=== PATIENT | female | born 1985 | race Caucasian/White ===

== ENCOUNTER → 2016-10-30 | Outpatient (CLI) | payer OTHER ==
--- NOTE | 2016-10-30 16:24 | US ---
Dear Dr. Del Cid, Thank you for sending your patient, Maria Del Carmen West, to us for an US and consultation to assess fet al anatomy. As you know, the patient is a 31 y.o. G3, P0020 at 19 weeks and 3 days with an EDC of 03/07 04/22 based on LMP and 8 week US. Her has been uncomplicated to date. Genetic Screening: Sequential Screen negative The patient denies any uterine contractions, vaginal bleeding, or loss of fluid. Today, she is withou t complaints. US FINDINGS: Number of fetuses: 1 Placental location: Posterior, No previa Placental Cord Insertion: Central presentation: Cephalic Cervix: 3.6 cm, transabdominally MVP: 4.2 cm The adnexa were evaluated. No pathology was seen. Right ovary: Suboptimal Left ovary: Suboptimal heart rate: 134 bpm Measurements: Biparietal diameter: 45 mm, 19 weeks 5 days Head circumference: 170 mm, 19 weeks 5 days Abdominal circumference: 145 mm, 19 weeks 6 days Femur length: 30 mm, 19 weeks 2 days Humerus length: 29 mm, 19 weeks 4 days Transcerebellar diameter: 21 mm, 19 weeks 6 days Average ultrasound age: 19 weeks 5 days Estimated weight: 301 g weight percentile: 55% ANATOMY Supratentorial brain: Normal Cerebral lateral ventricle: 5 mm Posterior fossa: Normal Cisterna magna: 4 mm Nuchal fold: 4.3 mm Lip: Normal Profile: Normal Alveolar Ridge: Appears intact Spine: -- Cervical: Normal -- Thoracic: Normal -- Lumbar: Normal -- Sacral: Normal Heart: -- 4 Chamber: Normal -- Intraventricular septum: Appears intact by Color and Spectral US -- Right Outflow Tract: Normal -- Left Outflow Tract: Normal -- 3 Vessel View: Normal Diaphragm: Appears intact Stomach: Normal Abdominal Umbilical Cord Insertion: Normal Right kidney: Normal Left kidney: Normal Bladder: Normal Number of cord vessels: 3 Upper extremities: -- Right Arm: Normal -- Right Hand: Normal -- Left Arm: Normal -- Left Hand: Normal Lower extremities: -- Right Leg: Normal -- Right Foot: Normal, no club foot -- Left Leg: Normal -- Left Foot: Normal, no club foot IMPRESSION: 1. Anatomy: The fetus measures appropriate for gestational age, measuring a normal weight and percen tile. Visualization of the fetus today reveals no overt structural anomalies. There is evidence of no rmal amniotic fluid, and movement was seen during the examination. 2. Genetic Screening: This patient has had reassuring Sequential Screen results this . Today , no markers of aneuploidy were seen. While her screening and US results are reassuring, we rev iewed that aneuploidy can only be definitively excluded with diagnostic testing via amniocentes is. After this discussion, the patient does not wish to proceed with invasive testing at this time. Thank you again for sending this patient to see us today. Please feel free to contact me with any questions at . Maryellen Butler MD Maternal- Medicine
--- NOTE | 2016-10-30 17:12 | US ---
Complete Obstetric Ultrasound History: 31-year-old with estimated gestational age of 19 weeks 3 days with EDC of March 23, 2017. Comparison: OB ultrasound September 13, 2016. Findings: Number: 1 Presentation: Variable Placental location: Posterior. No previa. Cervix: Closed, measuring 3.6 cm transabdominally Maximum vertical pocket: 4.2 cm The ovaries are not visible. Biometry: Biparietal diameter: 45 mm 19 weeks, 5 days Head circumference: 170 mm 19 weeks, 5 days Abdominal circumference: 145 mm 19 weeks, 6 days Femur length: 30 mm 19 weeks, 2 days Humerus length: 29 mm 19 weeks, 4 days Transcerebellar diameter: 21 mm 19 weeks, 6 days Average ultrasound age: 19 weeks, 5 days EDC based on today's average ultrasound age: March 21, 2017 Estimated weight is 301 gms +/- 44 gms. The estimated weight percentile is 55 % based on previous dating. ANATOMY SURVEY: Supratentorial brain: Normal Posterior fossa: Normal Spine: Normal Nose and lips: Normal Heart: Four chamber heart with heart rate of 134. The outflow tracts are normal. Stomach: Normal Umbilical cord insertion: Normal Kidneys: Normal Bladder: Normal Number of cord vessels: Three Upper extremities: Normal Lower extremities: Normal Impression: 1. Living single intrauterine with size concordant with dates. 2. Unremarkable anatomy. Please see separate dictation for consultation performed by Maryellen Butler MD, the [facility].
== END ==
LOC: FIMAGING 14:30
PROVIDERS: ATTEND Obstetrics & Gynecology
DX: Z36 Encounter for antenatal screening of mother (principal); Z3A.19 19 weeks gestation of pregnancy

== ENCOUNTER 2017-01-24 19:50 | Inpatient (IN) | payer OTHER ==
[2017-01-24] MEDS ORDERED: WATER IV ONE (20:48)
[2017-01-24] MEDS ORDERED: AZITHROMYCIN 250 MG TAB PO ONE (20:48)
[2017-01-24] MEDS ORDERED: MAGNESIUM SULF IV ONE (20:48)
[2017-01-24] MEDS ORDERED: CALCIUM GLUC 10% 1 GM/10 ML VIAL IVP PRN (20:48)
[2017-01-24] MEDS ORDERED: BETAMETHASONE IM SYRINGE IM ONE (21:00)
--- NOTE | 2017-01-24 21:33 | GHP ---
[f rep st] HISTORY AND PHYSICAL DATE OF ADMISSION: 01/24/2017 CHIEF COMPLAINT: Leaking fluid. HISTORY OF PRESENT ILLNESS: The patient is a 31-year-old, G3, P0-0-2-0 at 31 weeks 5 days by last menstrual period and first trimester ultrasound who presents to the hospital with a complaint of leaking clear fluid from the vagina. She states that she was out at an event with family and suddenly felt like her underwear was wet. She went to the bathroom and noticed clear fluid trickling down her leg and then she immediately presented to the hospital. She denies vaginal bleeding, contractions, and she feels positive movement. Her is notable for history of 1 induced and 1 missed in the past. OB labs: blood type B positive with antibody negative. Hematocrit 41.2%. Normal Pap smear. She is immune to rubella. Nonreactive to RPR, hepatitis B surface antigen, HIV, and a negative urine culture. She had a negative gonorrhea and chlamydia screen. Her 1-hour Glucola was normal. GBS unknown. PAST MEDICAL HISTORY: Nonsignificant. PAST SURGICAL HISTORY: Notable for a fractured rib in 2006, a wrist fracture in 1999, and another wrist fracture in 1994. SOCIAL HISTORY: [place]. She works for an [employer]. She is not a smoker and she does not use alcohol during or any other drugs. FAMILY HISTORY: Non contributory ALLERGIES: She is allergic to synthetic epinephrine. MEDICATIONS: vitamins and Zofran ODT 4 mg p.r.n. PHYSICAL EXAMINATION: VITAL SIGNS: Blood pressure 117/64 mm/Hg. Temperature 36.9 degree celcius. Respirations 16 per minute. Pulse 78 beats per minute. GENERAL: Awake, alert. No acute distress. RESPIRATORY: Unlabored breathing. CARDIOVASCULAR: Regular rate and rhythm. 2+ pulses. ABDOMEN: Gravid, appropriate with gestational age. Soft. Nontender. No contractions palpated. EXTREMITIES: No edema. PERINEUM: Just prior to planned placement of speculum there were multiple gushes of clear fluid consistent with amniotic fluid and which was Nitrazine positive. DIAGNOSTIC STUDIES: Bedside ultrasound demonstrated a fetus in vertex presentation. Baseline heart rate 130 beats per minute with moderate variability. Positive spontaneous accelerations and no decelerations. Tocometer notable for contractions every 2-3 minutes. Laboratory studies pending include complete blood count and type and screen. ASSESSMENT: The patient is a 31-year-old, G3, P0-0-2-0 at 31 weeks and 5 days who presents premature rupture of membranes. She is not in labor. The current status is reassuring and in vertex presentation. Up until this point, she has had a low-risk . PLAN: Admit to labor and delivery for the duration of the . GBS swab collected. Administer corticosteroids for lung maturity. Administer standard antibiotics for PPROM. As she is less than 32 weeks and is currently esther on the monitor will administer magnesium for neuroprotection which will include a 6 g bolus followed by 2 g/hour for 12 hours. Type and screen, and CBC to be collected. Will obtain formal ultrasound with growth in the morning. Regular diet. Saline lock IV. Modified bed rest. We will plan to induce labor at 34 weeks 0 days. All questions answered in detail with the parents. Of note, while discussing the plan of care, the patient's had a brief syncopal episode while he was sitting in a chair. He immediately awakened with a sternal rub. He states that it is very common for him to have these episodes when he is anxious or nervous. /[id number]/MODL MTDD
[2017-01-24 21:54] LABS: % IMMATURE GRANULYOCYTES 1.7 % (0.0-1.1); ABSOLUTE IMMATURE GRANULOCYTES 0.17 10^3/uL (0.00-0.10); ADD DIFF? NO; ADD MORPH? NO; ADD SCAN? NO; ATYPICAL LYMPHOCYTE FLAG 0 (0-99); FRAGMENT RBC FLAG 0 (0-99); HEMATOCRIT 38.4 % (38.0-47.0); HEMOGLOBIN 12.8 g/dL (12.6-16.3); LEFT SHIFT FLG 10 (0-99); LIPEMIA HEMOLYSIS FLAG 80 (0-99); MEAN CELL HEMOGLOBIN 30.6 pg (27.9-34.1); MEAN CELL HEMOGLOBIN CONCENTR. 33.3 g/dL (32.4-36.7); MEAN CELL VOLUME 91.9 fL (81.5-99.8); MEAN PLATELET VOLUME 11.6 fL (8.7-11.7); PLATELET CLUMPS FLAG 0 (0-99); PLATELET COUNT 236 10^3/uL (150-400); RED BLOOD CELL COUNT 4.18 10^6/uL (4.18-5.33)
[2017-01-24] MEDS: Mag Sulf 500 ML IV SCH (21:57)
[2017-01-24] MEDS: AMPICILLIN SODIUM 2 GM in NS 100 ML IV SCH (22:00)
[2017-01-24] MEDS ORDERED: ONDANSETRON 4 MG/2 ML VIAL IVP PRN (22:17)
[2017-01-24] MEDS ORDERED: CALCIUM CARBONATE 500 MG CHEWABLE TAB PO PRN (22:17)
[2017-01-24] MEDS ORDERED: ACETAMINOPHEN 325 MG TAB PO PRN (22:18)
[2017-01-24] MEDS: DOCUSATE SODIUM 100 MG CAP PO SCH (22:32)
[2017-01-25] MEDS ORDERED: AMPICILLIN SODIUM 2 GM in NS 100 ML IV SCH
[2017-01-25] MEDS: AMPICILLIN SODIUM 2 GM in NS 100 ML IV SCH ×4 (03:32→20:55)
[2017-01-25] MEDS: Mag Sulf 500 ML IV SCH (04:05)
[2017-01-25] MEDS ORDERED: BETAMETHASONE 30 MG/5 ML VIAL IM SCH (09:00)
[2017-01-25] MEDS: DOCUSATE SODIUM 100 MG CAP PO SCH ×2 (09:16→20:56)
[2017-01-25] MEDS: AZITHROMYCIN 250 MG TAB PO SCH (09:16)
[2017-01-25] MEDS: SIMETHICONE 80 MG TAB CHEW PO SCH ×3 (09:19→18:06)
[2017-01-25] MEDS ORDERED: MAGNESIUM SULF 20 GM/500 ML BAG IV ONE (15:23)
--- NOTE | 2017-01-25 18:03 | OBPROG ---
OBG Progress Note Assessment/Plan: Pt seen this AM at 0830 and again now at 1800 (total 30 minutes). Assessment: 31 y/o A2 female at 31+6 weeks EGA w/ PPROM - hemodynamically stable, afebrile Plan: 1) PPROM: Plan for expectant management with plans for delivery if non- reassuring status, signs of chorioamnionitis, or labor. Continue antibiotics w/ ampicillin and azithromycin. 2) status reassuring - continuous monitoring while on magnesium; plan NST TID after Mg completed. BTMZ #1 completed; dose #2 tonight. 3) Tocolysis - continue Mg for neuroprotection and tocolysis until 2nd dose of BTMZ tonight. No signs of labor. 4) GBS pending. 5) Modified bedrest w/ BRP - ambulating well w/ Mg. SCD's bilaterally for DVT prophylaxis. Counseled > 90% of visit, all questions answered. Seen by CHILDCARE DIRECTOR for counseling as well. 01/25/17 17:59 Subjective: Pt has no complaints. Not feeling any contractions or cramping, no bleeding, + continued LOF that appears clear and not foul smelling. No concerns. Pt seen by CHILDCARE DIRECTOR, all questions answered. Objective: 01/24/17 20:50 Patient ABO/Rh B POSITIVE 01/24/17 20:50 Current Contraction Pattern: Irregular FHR (bpm): 120 FHR Pattern Variability: Moderate FHR Category: 1 Membranes: SROM Amniotic Fluid Color: Clear ICD10 Worksheet Patient Problems: Problems Problem Status Onset premature rupture of membranes (PPROM) with unknown onset of labor Acute - ICD10 Problem Qualifiers (1) premature rupture of membranes (PPROM) with unknown onset of labor
[2017-01-25] MEDS ORDERED: BETAMETHASONE IM SYRINGE IM ONE (21:00)
[2017-01-25] MEDS ORDERED: diphenhydrAMINE 25 MG CAP PO ONE (23:00)
[2017-01-26] MEDS: AMPICILLIN SODIUM 2 GM in NS 100 ML IV SCH ×3 (03:03→15:02)
[2017-01-26] MEDS: SIMETHICONE 80 MG TAB CHEW PO SCH ×5 (04:56→23:02)
[2017-01-26] MEDS: AZITHROMYCIN 250 MG TAB PO SCH (09:09)
[2017-01-26] MEDS: DOCUSATE SODIUM 100 MG CAP PO SCH ×2 (09:09→21:03)
--- NOTE | 2017-01-26 10:11 | OBPROG ---
OBG Progress Note Assessment/Plan: Pt seen this AM at 0830 and again now at 1800 (total 30 minutes). Assessment: 31 y/o A2 female at 31+6 weeks EGA w/ PPROM - hemodynamically stable, afebrile Plan: 1) PPROM: Plan for expectant management with plans for delivery if non- reassuring status, signs of chorioamnionitis, or labor. Continue antibiotics w/ ampicillin and azithromycin. 2) status reassuring - NST TID, s/p BTMZ course. Counseled by TEAM AUTOMOBILE ASSEMBLER regarding risks of prematurity. 3) No signs of labor. 4) GBS pending. 5) Modified bedrest w/ BRP 6) SCD's bilaterally for DVT prophylaxis. Counseled > 90% of visit, all questions answered. 01/26/17 10:12 Subjective: Pt feels well. No complaints currently. She did have an episode last night of redness on her upper arms and shoulders that spread to her neck and chest; no itching, no SOB/chest pain. No other symptoms; no new medication exposures. Pt given benadryl, and she slept well, and now the redness is completely gone. No vb/ctx, abdominal pain, +good FM, and continued clear leakage of fluid. No other concerns. Objective: 01/24/17 20:50 Patient ABO/Rh B POSITIVE 01/24/17 20:50 Group B Strep DNA NEGATIVE (NEGATIVE) 01/24/17 20:45 Current Contraction Pattern: Other (Specify) (rare) FHR (bpm): 120 FHR Pattern Variability: Moderate FHR Category: 1 Membranes: SROM Amniotic Fluid Color: Clear - Physical Exam General Appearance: WD/WN, alert, no apparent distress Respiratory: lungs clear Cardiac/Chest: regular rate, rhythm Abdomen: normal bowel sounds, other (fundus nontender) ICD10 Worksheet Patient Problems: Problems Problem Status Onset premature rupture of membranes (PPROM) with unknown onset of labor Acute - ICD10 Problem Qualifiers (1) premature rupture of membranes (PPROM) with unknown onset of labor
[2017-01-27 09:13] LABS: % IMMATURE GRANULYOCYTES 2.5 % (0.0-1.1); ABSOLUTE IMMATURE GRANULOCYTES 0.26 10^3/uL (0.00-0.10); ADD DIFF? NO; ADD MORPH? NO; ADD SCAN? NO; ATYPICAL LYMPHOCYTE FLAG 10 (0-99); FRAGMENT RBC FLAG 0 (0-99); HEMATOCRIT 33.6 % (38.0-47.0); HEMOGLOBIN 11.1 g/dL (12.6-16.3); LEFT SHIFT FLG 20 (0-99); LIPEMIA HEMOLYSIS FLAG 80 (0-99); MEAN CELL HEMOGLOBIN 30.4 pg (27.9-34.1); MEAN CELL VOLUME 92.1 fL (81.5-99.8); MEAN PLATELET VOLUME 10.9 fL (8.7-11.7); PLATELET CLUMPS FLAG 0 (0-99); PLATELET COUNT 212 10^3/uL (150-400); RED BLOOD CELL COUNT 3.65 10^6/uL (4.18-5.33); RED CELL DISTRIBUTION WIDTH 12.1 % (11.5-15.2)
[2017-01-27] MEDS: AZITHROMYCIN 250 MG TAB PO SCH (09:13)
[2017-01-27] MEDS: DOCUSATE SODIUM 100 MG CAP PO SCH ×2 (09:13→20:37)
[2017-01-27] MEDS: SIMETHICONE 80 MG TAB CHEW PO SCH ×4 (09:14→22:59)
--- NOTE | 2017-01-27 13:28 | OBPROG ---
OBG Progress Note Assessment/Plan: Pt seen this AM at 0830 and again now at 1800 (total 30 minutes). Assessment: 31 y/o A2 female at 32+0 weeks EGA w/ PPROM - hemodynamically stable, afebrile Plan: 1) PPROM: Plan for expectant management with plans for delivery if non- reassuring status, signs of chorioamnionitis, or labor. Continue antibiotics w/ ampicillin and azithromycin. 2) status reassuring - NST TID, s/p BTMZ course. Counseled by GOLF COURSE ARCHITECT regarding risks of prematurity. 3) No signs of labor. 4) GBS negative. 5) Activity: Modified bedrest w/ bathroom privileges. Will allow wheel chair privileges to nursery and outside once daily; may shower once daily. 6) SCD's bilaterally for DVT prophylaxis. 01/27/17 13:30 Subjective: Pt has no complaints, feeling well. Continued small amt of LOF that is clear, no ctx or cramping, no bleeding, good FM. No fevers/chills/abd pain. Objective: 01/27/17 09:00 Patient ABO/Rh B POSITIVE 01/24/17 20:50 Group B Strep DNA NEGATIVE (NEGATIVE) 01/24/17 20:45 Membranes: SROM Amniotic Fluid Color: Clear - Physical Exam General Appearance: WD/WN, alert, no apparent distress Respiratory: lungs clear Cardiac/Chest: regular rate, rhythm Abdomen: normal bowel sounds, non-tender, soft ICD10 Worksheet Patient Problems: Problems Problem Status Onset premature rupture of membranes (PPROM) with unknown onset of labor Acute - ICD10 Problem Qualifiers (1) premature rupture of membranes (PPROM) with unknown onset of labor
--- NOTE | 2017-01-28 08:49 | OBPROG ---
OBG Progress Note Assessment/Plan: Assessment: 31 y/o A2 female at 32+1 weeks EGA w/ PPROM - hemodynamically stable, afebrile, status reassuring. Mild cramping this AM, resolved. Plan: 1) PPROM: Plan for expectant management with plans for delivery if non- reassuring status, signs of chorioamnionitis, or labor. Continue antibiotics w/ amoxicillin and azithromycin, Day 01/11 2) status reassuring - NST TID, s/p BTMZ course. Counseled by LEAD DEVELOPER regarding risks of prematurity. EFW 1802 g on 01/26 (31st percentile). Vertex 3) No signs of labor. Pt will let us know if cramping or back pain returns, will monitor with toco in that case and consider SSE 4) GBS negative. 5) Activity: Modified bedrest w/ bathroom privileges. Will allow wheel chair privileges to nursery and outside once daily; may shower once daily. 6) SCD's bilaterally for DVT prophylaxis. 01/28/17 08:52 Subjective: Overall feeling well. Baby is very active. Ongoing leaking of fluid, very slight pink tinge last night x 1, none since. Earlier this AM felt some mild cramping and back discomfort, now completely resolved. No fevers/chills. Objective: 01/27/17 09:00 Patient ABO/Rh B POSITIVE 01/27/17 21:45 Group B Strep DNA NEGATIVE (NEGATIVE) 01/24/17 20:45 109/72 36.6 64 Gen: alert, awake, NAD Resp: unlabored CV: RRR Abd: gravid, soft, nontender Ext: SCDs in place, no edema FHR (bpm): 130 FHR Pattern Variability: Moderate FHR Category: 1 Membranes: SROM Amniotic Fluid Color: Clear ICD10 Worksheet Patient Problems: Problems Problem Status Onset premature rupture of membranes (PPROM) with unknown onset of labor Acute Vaginal discharge during in third trimester Acute
[2017-01-28] MEDS: AZITHROMYCIN 250 MG TAB PO SCH (09:08)
[2017-01-28] MEDS: DOCUSATE SODIUM 100 MG CAP PO SCH ×2 (09:08→21:00)
--- NOTE | 2017-01-29 08:20 | SOAPPROG ---
SOAP Progress Note Assessment/Plan: Assessment: 31 yo @ 32 2/7 with PPROM Plan: 01/29/17 08:16 FWB reassuring by nst tid and growth US. PPROM-on abx oral, s/p bmz, plan on IOL at 34 weeks if the patient does not develop chorio or nonreassuring herat tones GBS neg. Subjective: 31 yo female @ 32 3/7 with PPROM, no complaints today. Objective: Laboratory Results 01/27/17 09:00 104/56 66 16 37.4 Physical Exam - Physical Exam General Appearance: no apparent distress Respiratory: lungs clear Cardiac/Chest: regular rate, rhythm Abdomen: non-tender Skin: warm/dry Extremities: non-tender Neuro/Psych: oriented x 3 ICD10 Worksheet Patient Problems: Problems Problem Status Onset premature rupture of membranes (PPROM) with unknown onset of labor Acute Vaginal discharge during in third trimester Acute
[2017-01-29] MEDS: DOCUSATE SODIUM 100 MG CAP PO SCH ×2 (09:52→21:59)
[2017-01-29] MEDS: AZITHROMYCIN 250 MG TAB PO SCH (09:52)
[2017-01-30] MEDS: DOCUSATE SODIUM 100 MG CAP PO SCH ×2 (09:09→21:04)
--- NOTE | 2017-01-30 11:29 | SOAPPROG ---
SOAP Progress Note Assessment/Plan: Assessment: 31 yo @ 32 4/7 with PPROM Plan: FWB reassuring by nst tid and growth US. PPROM-on abx oral, s/p bmz, plan on IOL at 34 weeks if the patient does not develop chorio or nonreassuring herat tones GBS neg. 01/30/17 11:27 Subjective: 31 yo @ 32 4/7 with PPROM-had some contractions last night which resolved with IV fluids. No vaginal bleeding or unusual discharge, good movement. Objective: Laboratory Results 01/27/17 09:00 110/67 73 36.8 NST 130s, mod variability, +accels, uterine irritability on toco Physical Exam - Physical Exam General Appearance: no apparent distress Respiratory: lungs clear Cardiac/Chest: regular rate, rhythm Abdomen: non-tender Skin: warm/dry Extremities: non-tender Neuro/Psych: oriented x 3 ICD10 Worksheet Patient Problems: Problems Problem Status Onset premature rupture of membranes (PPROM) with unknown onset of labor Acute Vaginal discharge during in third trimester Acute
--- NOTE | 2017-01-30 19:29 | OBPROG ---
OBG Progress Note Assessment/Plan: Called by RN with report that patient's IV infiltrated, and she needed orders to put in a new IV and continue maintenance IVF. Ordered IV access & LR @ 125 cc/hour. I also noted an incidental discharge order that must have been written in error over this last weekend, so I cancelled it. Caleb Prieto MD 01/30/17 19:28 Objective: 01/27/17 09:00 Patient ABO/Rh B POSITIVE 01/27/17 21:45 Group B Strep DNA NEGATIVE (NEGATIVE) 01/24/17 20:45 ICD10 Worksheet Patient Problems: Problems Problem Status Onset premature rupture of membranes (PPROM) with unknown onset of labor Acute Vaginal discharge during in third trimester Acute - ICD10 Problem Qualifiers (1) premature rupture of membranes (PPROM) with unknown onset of labor
[2017-01-30] MEDS: LR 1,000 ML IV SCH (23:41)
--- NOTE | 2017-01-31 07:35 | SOAPPROG ---
SOAP Progress Note Assessment/Plan: Assessment: 31 yo @ 32 5/7 with PPROM, stable Plan: FWB reassuring by nst tid and growth US. PPROM-on abx oral, s/p bmz, plan on IOL at 34 weeks if the patient does not develop chorio or nonreassuring herat tones GBS neg. 01/31/17 07:33 Subjective: 31 yo @ 32 5/7 with PPROM, stable-no worsening contractions, vaginal bleeding. Objective: Laboratory Results 01/27/17 09:00 100/58 74 36.7 NST 130s, mod variability, +accels TOCO-shows uterine irritability Physical Exam - Physical Exam General Appearance: no apparent distress Respiratory: lungs clear Cardiac/Chest: regular rate, rhythm Abdomen: non-tender Skin: warm/dry Extremities: non-tender Neuro/Psych: oriented x 3 ICD10 Worksheet Patient Problems: Problems Problem Status Onset premature rupture of membranes (PPROM) with unknown onset of labor Acute Vaginal discharge during in third trimester Acute
[2017-01-31] MEDS: DOCUSATE SODIUM 100 MG CAP PO SCH (08:38)
[2017-02-01] MEDS: DOCUSATE SODIUM 100 MG CAP PO SCH ×2 (09:16)
--- NOTE | 2017-02-01 12:32 | SOAPPROG ---
SOAP Progress Note Assessment/Plan: Assessment: 31 yo @ 32 6/7 with PPROM, stable Plan: FWB reassuring by nst tid and growth US. PPROM-s/p abx oral, s/p bmz, plan on IOL at 34 weeks if the patient does not develop chorio or nonreassuring herat tones GBS neg. 02/01/17 12:31 Subjective: 31 yo @ 32 6/7 with PPROM, stable Objective: Laboratory Results 01/27/17 09:00 120/62 78 98% 37.1 Physical Exam - Physical Exam General Appearance: no apparent distress Abdomen: non-tender Skin: warm/dry Extremities: non-tender Neuro/Psych: oriented x 3 ICD10 Worksheet Patient Problems: Problems Problem Status Onset premature rupture of membranes (PPROM) with unknown onset of labor Acute Vaginal discharge during in third trimester Acute
[2017-02-01] MEDS: LR 1,000 ML IV SCH (22:49)
[2017-02-02] MEDS: DOCUSATE SODIUM 100 MG CAP PO SCH ×3 (06:36→23:21)
--- NOTE | 2017-02-02 07:43 | SOAPPROG ---
SOAP Progress Note Assessment/Plan: Assessment/Plan: 31 y/o A2 female at 33 weeks EGA w/ PPROM - hemodynamically stable, afebrile , fundus nontender. s/p abx. Not in labor. status overall reassuring, however newly with subtle intermittent late decels today. Will do position changes, O2 prn, and continuously monitor today. Continue IVF. Continue SCDs. GBS neg. Modified bedrest with bathroom privileges. Reviewed plan of care with pt and all questions answered. Subjective: Slept well overnight. On IV fluids since Saturday as she was having contractions and this resolved them. This morning baby wasn't feeling as active , now he is moving better. No VB. Not feeling any contractions. Objective: Laboratory Results 01/27/17 09:00 Gen: NAD, awake, alert Resp: unlabored CV: RRR Abd: gravid, soft, nontender Ext: no edema FHR baseline 130, mod alyse, accels, rare intermittent late decels (1 last night on NST, 2 this AM, very subtle with change from baseline from 130 --> 120). [place]: rare contractions, pt denies feeling - Time Spent With Patient Time Spent With Patient: 15 min - Pending Discharge Pending Discharge Within 24 Hours: No Pending Discharge Within 48 Hours: No ICD10 Worksheet Patient Problems: Problems Problem Status Onset premature rupture of membranes (PPROM) with unknown onset of labor Acute Vaginal discharge during in third trimester Acute
[2017-02-03] MEDS: DOCUSATE SODIUM 100 MG CAP PO SCH ×2 (09:06→21:37)
--- NOTE | 2017-02-03 09:29 | SOAPPROG ---
SOAP Progress Note Assessment/Plan: Assessment/Plan: 31 y/o A2 female at 33 1/7 weeks EGA w/ PPROM - hemodynamically stable, afebrile, fundus nontender. s/p abx, BMTZ, mag. Not in labor. status reassuring, no further decelerations, mod alyse with accels. Rare contractions. Continue IVF. Continue SCDs. GBS neg. Modified bedrest with bathroom privileges. Reviewed plan of care with pt and all questions answered. Iron for mild anemia PT referral. UTD on routine care including vaccines, glucola 02/03/17 09:29 Subjective: Feels great, no concerns. Ongoing leakage of clear fluid, occ slight yellow tinge, no VB. Rare mild cramp. Active baby. Mood is good. Getting everything coordinate with her work Objective: Laboratory Results 01/27/17 09:00 VS: WNL, reviewed in tracevue Gen: NAD, alert awake Resp: unlabored CV: RRR Abd: gravid, soft, nontender Ext: SCDs in place, no edema ICD10 Worksheet Patient Problems: Problems Problem Status Onset premature rupture of membranes (PPROM) with unknown onset of labor Acute Vaginal discharge during in third trimester Acute
[2017-02-03] MEDS: FERROUS SULFATE 325 MG TAB PO SCH (09:34)
--- NOTE | 2017-02-04 08:19 | OBPROG ---
OBG Progress Note Assessment/Plan: Assessment: 31 yo @ 33 2/7 with PPROM, stable Plan: FWB reassuring by nst tid and growth US. PPROM-s/p abx oral, s/p bmz, plan on IOL at 34 weeks if the patient does not develop chorio or nonreassuring herat tones GBS neg. 02/04/17 08:18 Subjective: 31 yo @ 33 2/7 with PPROM, stable-doing well, no complaints. Objective: 01/27/17 09:00 Patient ABO/Rh B POSITIVE 02/03/17 17:05 Group B Strep DNA NEGATIVE (NEGATIVE) 01/24/17 20:45 VSS - Physical Exam General Appearance: alert Respiratory: lungs clear Cardiac/Chest: regular rate, rhythm Abdomen: non-tender Extremities: non-tender Skin: warm/dry Neuro/Psych: oriented x 3 ICD10 Worksheet Patient Problems: Problems Problem Status Onset premature rupture of membranes (PPROM) with unknown onset of labor Acute Vaginal discharge during in third trimester Acute
[2017-02-04] MEDS: FERROUS SULFATE 325 MG TAB PO SCH (09:53)
[2017-02-04] MEDS: DOCUSATE SODIUM 100 MG CAP PO SCH ×2 (09:53→22:08)
[2017-02-05] MEDS: LR 1,000 ML IV SCH ×2 (00:03→16:23)
--- NOTE | 2017-02-05 07:48 | OBPROG ---
OBG Progress Note Assessment/Plan: Assessment: 31 y.o. female at 33 3/7 weeks admitted for PPROM at 32 weeks. Experienced intermittent uterine contractions throughout the night, more uncomfortable last night. Given 1000cc IVF bolus. Currently reports decreased cramping and discomfort. Plan: TID EFM. VS Q4H. Regular diet. 02/05/17 07:44 Subjective: Patient reports feeling more comfortable this morning. Reports occasional mild cramping (approximately 1-2x/hour). Denies vaginal bleeding and continues to leak clear amniotic fluid. Reports good movement. Objective: 01/27/17 09:00 Patient ABO/Rh B POSITIVE 02/03/17 17:05 Group B Strep DNA NEGATIVE (NEGATIVE) 01/24/17 20:45 Current Contraction Pattern: Other (Specify) (rare) FHR Pattern Variability: Moderate FHR Category: 1 Membranes: SROM Amniotic Fluid Color: Clear - Physical Exam General Appearance: WD/WN, alert, no apparent distress Estimated Weight: 2501-3400g EENT: PERRL/EOMI, normal ENT inspection Neck: non-tender, full range of motion, normal inspection Respiratory: lungs clear, normal breath sounds Cardiac/Chest: regular rate, rhythm Abdomen: non-tender, soft Membranes: SROM Amniotic Fluid Color: clear Extremities: normal range of motion, non-tender, normal inspection Back: Normal inspection Skin: normal color, warm/dry Neuro/Psych: alert, normal mood/affect, oriented x 3 ICD10 Worksheet Patient Problems: Problems Problem Status Onset premature rupture of membranes (PPROM) with unknown onset of labor Acute Vaginal discharge during in third trimester Acute
[2017-02-05] MEDS: DOCUSATE SODIUM 100 MG CAP PO SCH (08:06)
[2017-02-05] MEDS: FERROUS SULFATE 325 MG TAB PO SCH (08:06)
[2017-02-05] MEDS ORDERED: LR 500 ML IV ONE ×2 (16:30→20:45)
[2017-02-05] MEDS: fentaNYL 100 MCG/2 ML INJ IVP PRN ×2 (17:58→23:12)
[2017-02-05] MEDS ORDERED: fentaNYL 100 MCG/2 ML INJ IVP ONE (19:54)
[2017-02-05] MEDS ORDERED: ceFAZolin 2 GM/DEXTROSE 100 ML IV ONE (20:45)
[2017-02-05] MEDS ORDERED: CITRIC ACID/SODIUM CITRATE 30 ML UDCUP PO ONE (20:45)
--- NOTE | 2017-02-05 20:51 | OBPROG ---
OBG Progress Note Assessment/Plan: Hospital course: The patient started to feel more contractions this afternoon, initially 6x/ hour. She was given an IVF bolus. By 1730, the RN reported she felt contractions q3 minutes. I did a SSE at that time that showed her cervix appeared to be a fingertip dilated. She was afebrile. I ordered continuous monitoring, temperature checks q4 hrs, and the status was reassuring. Two hours later, she reported that the contractions were becoming stronger, now ranked 8-9/10. She was having to breathe through them. A repeat SSE showed minimal change, possibly to 1cm. Due to the level of her discomfort, I made the decision to do an SVE, which confirmed she was 1/80/-2. No vertex was palpated, so a limited US was done to confirm presentation. It showed the baby was in the transverse presentation with head on the maternal right and spine up. I discussed that if she needed to be delivered tonight, she would need a primary section for her fetus being in the transverse presentation. Discussed the risk of a possible classical incision since the back was up. I would do an assessment in the OR, and if no parts were palpated in the lower uterine segment, we would start with a low vertical incision that might need to be extended to safely deliver the baby. Discussed that if a classical incision was needed, this would affect future deliveries. She and her indicated understanding. An hour later, she was even more uncomfortable; the RN reported her contractions were palpating stronger, so I rechecked her cervix, and her cervix had changed to 2-3cm. This cervical change is consistent with active labor. Will proceed with delivery. She still remains afebrile, so no current signs of chorioamnionitis. Discussed that an evolving infection is always a likely cause of her labor, and the pediatricians will continue to monitor baby closely after delivery. All questions answered and consents signed. Assessment: Pt is a 31 y/o A2 female at 33+3 weeks EGA admitted for PPROM now in active labor with baby in transverse, back up position confirmed w/ US: Plan: Proceed with delivery for PPROM in active labor. Pt reports subjectively feeling warm, but no fever documented. T= 37.5C one hour ago; now 36.6C. All risks of surgery reviewed to include risks of infection, bleeding, blood transfusion, damage to surrounding structures and organs, and hysterectomy. 02/05/17 20:51 Subjective: Pt feeling painful ctx, increasing in frequency, now currently q1.5-2 minutes. Continued LOF, no VB. Contraction pain ranked 9/10. No fevers/chills. Objective: 01/27/17 09:00 Patient ABO/Rh B POSITIVE 02/03/17 17:05 Group B Strep DNA NEGATIVE (NEGATIVE) 01/24/17 20:45 Temp Pulse Resp BP Pulse Ox 36.6 C 67 16 114/66 02/05/17 18:31 02/05/17 18:31 02/05/17 18:31 02/05/17 18:31 - SVE Dilation (cm): 3 Effacement (%): 80 Station: -2 Current Contraction Pattern: Regular FHR (bpm): 140 FHR Pattern Variability: Moderate FHR Category: 1 Membranes: SROM Amniotic Fluid Color: Clear - Physical Exam Estimated Weight: 2501-3400g ICD10 Worksheet Patient Problems: Problems Problem Status Onset premature rupture of membranes (PPROM) with unknown onset of labor Acute Vaginal discharge during in third trimester Acute - ICD10 Problem Qualifiers (1) premature rupture of membranes (PPROM) with unknown onset of labor
[2017-02-05] MEDS ORDERED: LR 1,000 ML IV SCH (21:00)
[2017-02-05] MEDS ORDERED: morphINE PF 5 MG/10 ML INJ ONE (21:10)
[2017-02-05] MEDS ORDERED: fentaNYL 100 MCG/2 ML INJ ONE ×4 (21:10→23:09)
[2017-02-05] MEDS ORDERED: OXYTOCIN/RINGERS LACTATE 1,000 ML IV SCH (21:30)
[2017-02-05 22:20] LABS: CORD BLOOD PCO2 51.6 mmHg (37-60)
[2017-02-05 22:21] LABS: PH VENOUS CORD BLOOD 7.38 (7.20-7.42)
[2017-02-05] MEDS ORDERED: MEPERIDINE 25 MG/ML SYR IVP PRN (22:55)
--- NOTE | 2017-02-05 22:58 | OBPROC ---
- Delivery Pre-op Diagnoses: 1) IUP at 33+3 weeks EGA, 2) PPROM, 3) Labor, 4) Transverse presentation Post-op Diagnoses: [place] Procedure: Primary, Vertical Surgeon: Teena Prieto Insurance Follow Up Specialist: Shelia Khan Anesthesiologist: Asa Ortega Anesthesia: Spinal Complications: None Findings: Baby in transverse position, back anterior. Specimen(s)/Path: Placenta IV Fluid (ml): 1,300 EBL: 800 cc Drains: Other (Specify) (roper) Cord Gases: Cord Gases Cord Blood PCO2 51.6 mmHg (37-60) 02/05/17 21:55 Cord Base Excess TNP 02/05/17 21:55 Cord ABG pH 7.30 (7.10-7.37) 02/05/17 21:55 Cord VBG pH 7.38 (7.20-7.42) 02/05/17 21:55 - Info A Delivery Date: 02/05/17 Delivery Time: 21:54 Sex of Infant: Male Keyser Weight (gm): 2150 kg Score (1 Min): 8 Score (5 Min): 9
[2017-02-05] MEDS ORDERED: KETOROLAC 30 MG/1 ML SDV ONE (23:46)
[2017-02-05] MEDS: KETOROLAC 30 MG/1 ML SDV IVP PRN (23:48)
[2017-02-06] MEDS: fentaNYL 100 MCG/2 ML INJ IVP PRN (00:15)
[2017-02-06] MEDS: DOCUSATE SODIUM 100 MG CAP PO SCH ×3 (01:25→20:05)
[2017-02-06] MEDS: HYDROCODONE/APAP 5/325 TAB PO PRN ×8 (02:15→23:22)
[2017-02-06] MEDS: KETOROLAC 30 MG/1 ML SDV IVP PRN ×2 (05:37→11:55)
--- NOTE | 2017-02-06 05:37 | GOP ---
[f rep st] OPERATIVE REPORT DATE OF OPERATION: 02/05/2017 SURGEON: Teena Prieto MD REAL ESTATE RECRUITER: CHAVA Castañeda ANESTHESIA: Spinal. PREOPERATIVE DIAGNOSIS: 1. Intrauterine at 33 weeks and 3 days. 2. premature rupture of membranes. 3. Active labor. 4. Fetus in transverse presentation with back up. POSTOPERATIVE DIAGNOSIS: 1. Intrauterine at 33 weeks and 3 days. 2. premature rupture of membranes. 3. Active labor. 4. Fetus in transverse presentation with back up. PROCEDURE PERFORMED: Primary classical section. FINDINGS: 1. Delivered a male , with Apgars of 8 and 9, in the transverse position. 1. Normal uterus, fallopian tubes, and ovaries bilaterally. 2. SPECIMENS: Placenta. ESTIMATED BLOOD LOSS: 800 cc. INDICATIONS: Patient is a 31-year-old, 3, para 0, abortus 2, female who was initially admit abby on January 24, 2017, for premature rupture of membranes. She was given steroids for lung maturity and remained without any complications until the day of surgery when she pro gressed into active labor. An ultrasound was performed at that time, which confirmed that the baby was not in the vertex breech presentation any longer, as found upon admission, but now instead was i n the transverse presentation with the head in the left upper quadrant and the spine was anter ior and inferior. The patient was counseled regarding the need to proceed with primary del aliza due to active labor. There were no signs of infection or chorioamnionitis as she remained afe brile. Discussed the risk of a classical incision given the baby's presentation and the fact that t he feet were in the right upper quadrant on imaging. She indicated understanding and agreed t o proceed. DESCRIPTION OF PROCEDURE: The patient was taken to the operating room where spinal anesthesia was f ound to be adequate. The patient was prepared and draped in normal sterile fashion in the dorsal martinez pine position with a left tilt. Ancef 2 g IV was administered prior to the skin incision. After co nfirmation of adequate anesthesia, a low transverse skin incision was made and carried down to the l evel of the fascia using the scalpel and Bovie for hemostasis. The fascia was incised in the midlin e, extended laterally bilaterally with the Holliday scissors. The fascia was then dissected off the rec tus muscles superiorly and inferiorly using the Bovie. The peritoneal cavity was entered bluntly, a nd the incision was extended with stretching and the use of the Bovie. A bladder blade was placed. The position was palpated and it was again confirmed the baby was still in transverse present ation with the head in the left upper quadrant. The decision was made to proceed with a low v ertical incision which could be extended if needed into a classical incision. An incision was 1st m miguelito in the vesicouterine peritoneum and extended laterally bilaterally with the Metzenbaum scissors. The bladder was then dissected away from the lower uterine segment digitally. A low vertical inci heather was made and entry into the amniotic cavity was made with clear fluid noted. The incision was initially extended digitally. A hand was placed into the uterine cavity, and the back was initially palpated. The cavity was explored and initially a hand then spontaneously delivered inferiorly. A n attempt was made to place the hand back into the uterine cavity, and the decision was made to exte nd the incision vertically up toward the fundus. This was completed using the bandage scissors with good visualization. With further exploration, the feet were not palpable and the left arm then del ivered superiorly. At this time I was able to rotate the head inferiorly and deliver the feta l head easily, and proceeded to deliver the baby without any complications. The baby was then monit ored with the nurse practitioner immediately at the baby's side to perform delayed cord cla mping for 1 minute. The resuscitation was initiated with the nurse practitioner present as this was completed. The cord was then clamped at 1 minute. The baby was taken away to the warmer at that time. A segment of cord was obtained for cord gases which were normal and reassuring, with an arterial pH of 7.30. The placenta was then delivered with uterine massage, and the uterus was ex teriorized on the maternal abdomen. The uterus was wiped with a dry lap sponge to remove all residu al membranes. The superior apex of the incision and the inferior apex were grasped with 4 clamps. There was a small lateral extension, approximately 2 cm long, laterally from the midline of the inci heather. The incision was then closed starting with a running lock stitch, starting at the superior fu ndal aspect of the incision. The incision was carried down inferiorly to the middle of the incision . A separate suture was then used to close the small lateral extension to the left side of the midl ine using a running lock stitch, and continuing to close the remaining portion of the incision verti praveen. A 2nd suture was then used to start an imbricating stitch, starting at the superior end of t he incision and running inferiorly. Additional ukvizu-jq-opmni stitches were then placed to obtain hemostasis. The posterior cul-de-sac was irrigated with copious amounts of normal saline and noted to be clear. The uterine incision was reexamined and hemostasis was assured. The uterus was placed back in maternal abdomen and the gutters were wiped with moist lap sponges bilaterally. The uterin e incision was reexamined and there was just a small amount of oozing that was controlled with the B ovie. There was a very small amount of venous oozing from the superior aspect of the incision, so S urgicel was placed along the entire length of the incision. The rectus muscles were then reapproxim ated with a oxehvw-tb-qqhjf stitch of 0 chromic. The rectus muscle surfaces and fascial surfaces we re examined closely and hemostasis was obtained with the use of the Bovie. The fascia was then clos ed with a running nonlocked stitch of #1 PDS. The subcutaneous tissue was irrigated with copious am ounts of normal saline and hemostasis was visualized. It was then reapproximated with interrupted s titches of 2-0 Vicryl. The skin was closed with a subcuticular stitch of 4-0 Monocryl. Steri-Strip s and a bandage dressing were placed. All sponge, lap, and needle counts correct x2. A vaginal Crede exam was performed and 2 clots expre ssed from the vagina and lower uterine segment. No further active free flow was noted. The uterine tone was excellent. The patient was then transferred to the PACU in stable and good condition. COMPLICATIONS: None. DRAINS: [place]gu[place] to gravity. IV FLUIDS: 1300 cc. URINE OUTPUT: 600 cc. /[id number]/MODL
[2017-02-06 06:14] LABS: % IMMATURE GRANULYOCYTES 1.4 % (0.0-1.1); ADD DIFF? NO; ADD MORPH? NO; ADD SCAN? NO; ATYPICAL LYMPHOCYTE FLAG 0 (0-99); FRAGMENT RBC FLAG 0 (0-99); HEMATOCRIT 29.7 % (38.0-47.0); HEMOGLOBIN 9.9 g/dL (12.6-16.3); LEFT SHIFT FLG 30 (0-99); LIPEMIA HEMOLYSIS FLAG 80 (0-99); MEAN CELL HEMOGLOBIN 30.2 pg (27.9-34.1); MEAN CELL HEMOGLOBIN CONCENTR. 33.3 g/dL (32.4-36.7); MEAN CELL VOLUME 90.5 fL (81.5-99.8); PLATELET CLUMPS FLAG 0 (0-99); PLATELET COUNT 191 10^3/uL (150-400); RED BLOOD CELL COUNT 3.28 10^6/uL (4.18-5.33); RED CELL DISTRIBUTION WIDTH 12.3 % (11.5-15.2)
--- NOTE | 2017-02-06 09:20 | SOAPPROG ---
SOAP Progress Note Assessment/Plan: Assessment/Plan: 31 y/o female POD#1 s/p primary classical C/S At 33 3/7 weeks for PPROM/ labor with transverse back-up presentation Recovering appropriately Baby transitioning well Plan: Pain control Trial binder D/C roper Ambulation Pumping Routine post-op/pp care Likely to boarder on POD#4 Subjective: Feeling tired and sore. Mood good. Hasn't tried to sit up yet. Roper in place. Did tolerate regular food and took 2 norco which did help with pain. Wants to start pumping. Objective: Vital Signs Temp Pulse Resp BP Pulse Ox 36.9 C 64 16 98/60 L 96 02/06/17 04:19 02/06/17 05:30 02/06/17 04:19 02/06/17 04:19 02/06/17 05:30 Laboratory Results 02/06/17 05:45 02/05/17 02/06/17 02/07/17 05:59 05:59 05:59 Intake Total 3950 Output Total 1800 Balance 2150 Gen: alert, awake, NAD Resp: unlabored CV: RRR Abd: soft, minimally distended, appropriately tender, uterus firm below U Bandage: clean/dry Ext: no edema ICD10 Worksheet Patient Problems: Problems Problem Status Onset History of classical section Acute premature rupture of membranes (PPROM) with unknown onset of labor Acute Vaginal discharge during in third trimester Acute - ICD10 Problem Qualifiers (1) History of classical section
[2017-02-06] MEDS ORDERED: POLYETHYLENE GLYCOL 3350 17 GM PKT PO PRN (09:21)
[2017-02-06] MEDS ORDERED: LACTULOSE 20 GM/30 ML UDCUP PO PRN (09:21)
[2017-02-06] MEDS ORDERED: MAGNESIUM HYDROXIDE 30 ML UDCUP PO PRN (09:21)
[2017-02-06] MEDS ORDERED: BISACODYL 10 MG SUPP PR PRN (09:21)
[2017-02-06] MEDS: SIMETHICONE 80 MG TAB CHEW PO PRN ×2 (09:31→20:05)
[2017-02-06] MEDS: FERROUS SULFATE 325 MG TAB PO SCH (09:31)
[2017-02-06] MEDS: IBUPROFEN 600 MG TAB PO PRN ×2 (18:07→23:22)
[2017-02-06] MEDS: SENNOSIDES/DOCUSATE SODIUM TAB PO SCH (20:05)
[2017-02-07] MEDS: HYDROCODONE/APAP 5/325 TAB PO PRN ×10 (02:12→23:32)
[2017-02-07] MEDS: IBUPROFEN 600 MG TAB PO PRN ×4 (05:41→23:31)
--- NOTE | 2017-02-07 08:49 | OBPROG ---
OBG Progress Note Assessment/Plan: Assessment: Pt is a 31 y/o A2 female POD#2 s/p classical section for PPROM in active labor with malposition - hemodynamically stable and doing well Plan: 1) Continue routine PP care 2) RX motrin and norco for pain 3) Baby doing well and stable in nursery 02/07/17 08:47 Objective: 02/06/17 05:45 Patient ABO/Rh B POSITIVE 02/03/17 17:05 Group B Strep DNA NEGATIVE (NEGATIVE) 01/24/17 20:45 Temp Pulse Resp BP Pulse Ox 36.5 C 68 16 88/57 L 97 02/07/17 02:04 02/07/17 02:04 02/07/17 02:04 02/07/17 02:04 02/07/17 02:04 Uterine Position/Fundal Height: At Umbilicus Uterine Tone: Firm - Physical Exam General Appearance: WD/WN, alert, no apparent distress Estimated Weight: 2501-3400g Respiratory: lungs clear Cardiac/Chest: regular rate, rhythm Abdomen: normal bowel sounds, soft (fundus firm), incision (c/d/i with steri strips intact) ICD10 Worksheet Patient Problems: Problems Problem Status Onset History of classical section Acute premature rupture of membranes (PPROM) with unknown onset of labor Acute Vaginal discharge during in third trimester Acute - ICD10 Problem Qualifiers (1) premature rupture of membranes (PPROM) with unknown onset of labor
[2017-02-07] MEDS: DOCUSATE SODIUM 100 MG CAP PO SCH ×2 (09:53→19:45)
[2017-02-07] MEDS: SIMETHICONE 80 MG TAB CHEW PO PRN (09:54)
[2017-02-07] MEDS: FERROUS SULFATE 325 MG TAB PO SCH (09:54)
[2017-02-07] MEDS: SENNOSIDES/DOCUSATE SODIUM TAB PO SCH ×2 (09:54→19:46)
[2017-02-08] MEDS: HYDROCODONE/APAP 5/325 TAB PO PRN ×8 (01:42→22:33)
[2017-02-08] MEDS: IBUPROFEN 600 MG TAB PO PRN ×3 (05:26→18:10)
--- NOTE | 2017-02-08 07:52 | SOAPPROG ---
SOAP Progress Note Assessment/Plan: Assessment: 31 y.o. female s/p primary C/S POD #3 for PPROM/ PTL and infant in transverse position. Recovering well, but desires to go home tomorrow. Pumping with in NICU. Incision CDI. Appropriate mood with good support system. Plan: Routine care. consult. Encourage ambulation. 02/05/17 07:44 02/08/17 07:49 Subjective: Reports good pain control with minimal vaginal bleeding. Incision CDI and healing well. Eating and drinking well without nausea or vomiting. Has been out of bed and ambulating without vertigo. Appropriate mood with good support system. Desires to stay as inpatient until tomorrow. Objective: Vital Signs Temp Pulse Resp BP Pulse Ox 36.3 C 67 16 88/62 L 97 02/08/17 01:30 02/08/17 01:30 02/08/17 01:30 02/08/17 01:30 02/08/17 01:30 Laboratory Results 02/06/17 05:45 02/07/17 02/08/17 02/09/17 05:59 05:59 05:59 Output Total 4050 Balance -4050 - Time Spent With Patient Time Spent With Patient: 20 minutes - Pending Discharge Pending Discharge Within 24 Hours: Yes Pending Discharge Date: 02/09/17 Pending Discharge Time: 11:00 Physical Exam - Physical Exam General Appearance: WD/WN, alert, no apparent distress EENT: normal ENT inspection Neck: non-tender, full range of motion, normal inspection Respiratory: lungs clear, normal breath sounds Cardiac/Chest: regular rate, rhythm Abdomen: non-tender, soft Pelvic Exam: normal external exam Rectal: deferred Back: Normal inspection Skin: normal color, warm/dry Lymphatic: no adenopathy Extremities: normal range of motion, non-tender, normal inspection Neuro/Psych: alert, normal mood/affect, oriented x 3 ICD10 Worksheet Patient Problems: Problems Problem Status Onset History of classical section Acute premature rupture of membranes (PPROM) with unknown onset of labor Acute Vaginal discharge during in third trimester Acute
[2017-02-08] MEDS ORDERED: IRON POLYSAC/IRON HEME 28 MG TAB PO SCH (09:00)
[2017-02-08] MEDS: SENNOSIDES/DOCUSATE SODIUM TAB PO SCH ×2 (09:17→20:27)
[2017-02-08] MEDS: FERROUS SULFATE 325 MG TAB PO SCH (09:17)
[2017-02-08] MEDS: DOCUSATE SODIUM 100 MG CAP PO SCH ×2 (09:17→20:27)
[2017-02-08 21:33] VITALS: RESP 16
[2017-02-09] MEDS: HYDROCODONE/APAP 5/325 TAB PO PRN ×7 (00:31→15:36)
[2017-02-09] MEDS: IBUPROFEN 600 MG TAB PO PRN ×3 (00:31→13:24)
--- NOTE | 2017-02-09 09:28 | OBGCSDC ---
General Delivery Information - General Info : 3 Para: 1 Delivery Date: 02/06/17 Delivery Time: 21:54 Delivery Physician/CNM: Teena Prieto Admission Date: 01/24/17 Labs: Patient ABO/Rh B POSITIVE 02/03/17 17:05 Hct 29.7 % (38.0-47.0) L 02/06/17 05:45 Group B Strep DNA NEGATIVE (NEGATIVE) 01/24/17 20:45 - [place] Info Infant A Weight (gm): 2150 kg Sex of : Male Score (1 Min): 8 Score (5 Min): 9 Vaginal - Diagnosis Amniotic Fluid Color: Clear - Delivery IUP (Weeks): 34 Number of Prior Sections: 0 Indications for Current Section: Other (Specify) (PPROM and transverse position) Procedures: LTCS Intra-op Complications: None EBL: 800 cc Anesthesia: Spinal Discharge Information - Discharge Information Discharge Medications: Ibuprofen, Iron, Vitamins, Vicodin Complications: PPROM and primary C/S for transverse position Condition: Good Instruction/Follow Up: Two Weeks Discharge Physician/CNM: Liz Howard Discharge Date: 02/09/17 Dictated: No
[2017-02-09] MEDS: DOCUSATE SODIUM 100 MG CAP PO SCH (09:39)
[2017-02-09] MEDS: FERROUS SULFATE 325 MG TAB PO SCH (09:39)
[2017-02-09] MEDS: SENNOSIDES/DOCUSATE SODIUM TAB PO SCH (09:40)
[2017-02-09 10:17] VITALS: BP 94/61; PULSE 73; TEMP 97.4; O2SAT 94
== END 2017-02-09 15:40 | disposition home or self-care (01) | DRG 766 ==
LOC: OBSVTOIN 19:50 → FLD 19:50 → FOB 02-06 00:59
PROVIDERS: ADMIT Obstetrics & Gynecology; ATTEND Obstetrics & Gynecology
PROC: 10D00Z0 Extraction of Products of Conception, High, Open Approach (ICD-10-PCS; principal; 2017-02-05)
DX: O42.113 Preterm premature rupture of membranes, onset of labor more than 24 hours following rupture, third trimester (principal); O32.2XX0 Maternal care for transverse and oblique lie, not applicable or unspecified; Z3A.33 33 weeks gestation of pregnancy; Z37.0 Single live birth
CPT/HCPCS: 97161-GP; J0290; J0610; J0690; J0702; J1885; J2274; J2405; J3010; J3475

== ENCOUNTER → 2017-12-20 | Outpatient (CLI) | payer OTHER | LOC: FIMAGING 09:43 | PROVIDERS: ATTEND Obstetrics & Gynecology | DX: D25.2 Subserosal leiomyoma of uterus (principal); Z98.891 History of uterine scar from previous surgery ==

== ENCOUNTER → 2019-03-31 | Outpatient (CLI) | payer OTHER | LOC: FIMAGING 09:36 ==